=== PATIENT | male | born 1995 | race Caucasian/White ===

== ENCOUNTER 2016-06-28 02:26 | Emergency (ER) | payer BC, OTHER ==
[~2016-06-28] VITALS: Ht 180.3 cm; Wt 80.0 kg
[2016-06-28 02:37] VITALS: TEMP 36.6; O2SAT 98; Ht 180.3 cm; Wt 80.0 kg
[2016-06-28 02:47] LABS: BASO % 0.2 %; BASO ABS # 0.02 K/uL (0-0.2); COMPLETE YES; EOS % 3.4 %; HEMATOCRIT 44.8 % (42-52); IG% 0.1 %; LYMPH % 39.9 %; LYMPH ABS # 3.44 K/uL (1.2-3.4); MEAN CELL VOLUME 91.4 fL (80-100); MEAN CORPUSCULAR HEMOGLOBIN 32.2 pg (25-34); MEAN CORPUSCULAR HGB CONC 35.3 g/dl (32-36); MEAN PLATELET VOLUME 11.1 fL (7.4-10.4); NEUT % 51.4 %; PLATELET COUNT 242 K/uL (130-400); WHITE BLOOD COUNT 8.62 K/uL (4.8-10.8)
[2016-06-28 03:08] LABS: BUN/CREATININE RATIO 12.7 (10-20); CALCIUM 8.4 mg/dl (8.5-10.1); CREATININE 1.3 mg/dl (0.60-1.40); POTASSIUM 3.6 mmol/L (3.5-5.1)
[2016-06-28 06:00] VITALS: BP 123/74; PULSE 78; O2SAT 98
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
== END 2016-06-28 06:30 | disposition home or self-care (01) ==
LOC: EDBD 02:26 → C.EDB 02:27
DX: F10.129 Alcohol abuse with intoxication, unspecified (principal); S09.93XA Unspecified injury of face, initial encounter; Y04.0XXA Assault by unarmed brawl or fight, initial encounter